=== PATIENT | male | born 1935 | race Caucasian/White ===

== ENCOUNTER 2019-07-01 07:04 | Emergency (ER) | payer MEDICARE | END 2019-07-01 07:43 | disposition short-term general hospital (02) | LOC: ED 07:04 ==

== ENCOUNTER 2021-11-03 17:11 | Emergency (ER) | payer MEDICARE ==
--- NOTE | 2021-11-03 17:59 | ERPHSYRPT ---
- History of Present Illness Time Seen by Provider: 11/03/21 17:51 Historian: patient Exam Limitations: no limitations Patient Subjective Stated Complaint: The patient states that this morning he felt like his existing inguinal hernia has been getting bigger, like a tearing sensation. The patient states that he had a hard time "getting the hernia to go back in"..the patient has a referral with Sonny Casey on November 12. Triage Nursing Assessment: The patient is alert and oriented, is able to ambulate. The patient is in obvious discomfort, rating pain at 7/10. The patient describes the pain as sharp, tearing and burning. The patient has a buldge by her left groin area that is golfball size. 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 He presents with a complaint of left inguinal pain he has had an inguinal hernia which developed at the beginning of October 2021 has been constantly getting worse he has had increasing difficulty today getting it to reduce itself spontaneously. He has had no nausea or vomiting. He is Dr. Champion's patient he has an appointment to see Dr. Sonny Casey 12 November but wishes to try to expedite that visit and subsequent surgery. Timing/Duration: week(s) (6 to 8 weeks) Activities at Onset: none Quality: throbbing Abdominal Pain Onset Location: LLQ Pain Radiation: groin Severity of Pain-Max: severe Severity of Pain-Current: moderate Modifying Factors: Improves With: coughing, lying down, movement Associated Symptoms: denies symptoms Allergies/Adverse Reactions: No Known Drug Allergies Allergy (Verified 11/03/21 17:41) Home Medications: Omeprazole 20 MG [Prilosec 20 mg] 20 mg PO DAILY 10/15/16 [History] Benazepril HCl 20 mg PO DAILY 11/03/21 [History] Diltiazem HCl [Cardizem Cd] 120 mg PO DAILY 11/03/21 [History] Rivaroxaban 10 mg Tablet [Xarelto 10 mg Tablet] 20 mg PO DAILY 11/03/21 [History] Hx Tetanus, Diphtheria Vaccination/Date Given: Yes Hx Influenza Vaccination/Date Given: No Hx Pneumococcal Vaccination/Date Given: No Immunizations Up to Date: Yes Travel Risk - International Travel Have you traveled outside of the country in past 3 weeks: No - Coronavirus Screening Are you exhibiting any of the following symptoms?: No Close contact with a COVID-19 positive Pt in past 14-21 Days: No - Vaccine Status Have you recieved a Covid-19 vaccination: No - Review of Systems Constitutional: No Fever, No Chills Eyes: No Symptoms Ears, Nose, & Throat: No Symptoms Respiratory: No Cough, No Dyspnea Cardiac: No Chest Pain, No Edema, No Syncope Abdominal/Gastrointestinal: No Abdominal Pain, No Nausea, No Vomiting, No Diarrhea Genitourinary Symptoms: No Dysuria Musculoskeletal: No Back Pain, No Neck Pain Skin: No Rash Neurological: No Dizziness, No Focal Weakness, No Sensory Changes Psychological: No Symptoms Endocrine: No Symptoms All Other Systems: Reviewed and Negative - Past Medical History Pertinent Past Medical History: Yes Neurological History: Peripheral Neuropathy Cardiac History: Arrhythmia, Hypertension Respiratory History: Other Endocrine Medical History: No Pertinent History Musculoskeletal History: Osteoarthritis GI Medical History: Hernia, Ulcer Psycho-Social History: No Pertinent History Other Medical History: A-fib, some symptoms of COPD but never diagnosed. - Past Surgical History Past Surgical History: Yes Neuro Surgical History: No Pertinent History Cardiac: Cardiac Catheterization Respiratory: No Pertinent History Gastrointestinal: Hernia Repair, Other Musculoskeletal: Orthopedic Surgery Other Surgical History: 35% OF STOMACH REMOVED, ULCERS, SOTERO SHOULDERS (sotero rotator cuff surgery) - Social History Smoking Status: Never smoker Exposure to second hand smoke: No Drug Use: none Patient Lives Alone: No - Nursing Vital Signs Nursing Vital Signs: Initial Vital Signs Temperature 97.4 F 11/03/21 17:23 Pulse Rate 70 11/03/21 17:23 Respiratory Rate 22 11/03/21 17:23 Blood Pressure 173/93 11/03/21 17:23 O2 Sat by Pulse Oximetry 99 11/03/21 17:23 Pain Scale Pain Intensity 7 - Physical Exam General Appearance: mild distress, alert Eye Exam: PERRL/EOMI, eyes nml inspection Ears, Nose, Throat Exam: normal ENT inspection, pharynx normal, moist mucous membranes Neck Exam: normal inspection, non-tender, supple, full range of motion Respiratory Exam: normal breath sounds, lungs clear, No respiratory distress Cardiovascular Exam: regular rate/rhythm, normal heart sounds Gastrointestinal/Abdomen Exam: soft, hernia (Hernia slides quite easily in and out seems to be somewhat tender), No tenderness, No mass Male Genitalia Exam: hernia Back Exam: normal inspection, normal range of motion, No CVA tenderness, No vertebral tenderness Extremity Exam: normal inspection, normal range of motion, pelvis stable Neurologic Exam: alert, oriented x 3, cooperative, normal mood/affect, nml cerebellar function, sensation nml, No motor deficits Skin Exam: normal color, warm, dry SpO2 Interpretation: normal SpO2: 99 O2 Delivery: Room Air - Course Nursing assessment & vital signs reviewed: Yes - Progress Progress: unchanged Progress Note: 11/03/21 18:[address] Mckinnon is on-call for call for the [facility]. He said that since it was reducible and no vomiting and no signs of strangulation that Dr. Jimenez would be any office tomorrow morning and the doctor pushed himself a bit in the office on and that he could be seen. - Departure Departure Disposition: Home Clinical Impression: Left inguinal hernia Condition: Stable Critical Care Time: No Referrals: ETHAN CHAMPION [Primary Care Provider] - Follow up/PCP as directed Instructions: Hernia Repair (DC), Groin Hernia (DC)
[2021-11-03 18:26] VITALS: BP 143/82; PULSE 72; O2SAT 97
== END 2021-11-03 18:26 | disposition home or self-care (01) ==
LOC: ED 17:11
DX: K40.90 Unilateral inguinal hernia, without obstruction or gangrene, not specified as recurrent (principal); I10 Essential (primary) hypertension; I48.91 Unspecified atrial fibrillation; Z79.01 Long term (current) use of anticoagulants; Z79.899 Other long term (current) drug therapy
CPT/HCPCS: 99283

== ENCOUNTER 2022-02-12 16:02 | Emergency (ER) | payer MEDICARE ==
[2022-02-12] MEDS ORDERED: Adacel Vial IM ONE ×2 (16:20→16:23)
[2022-02-12] MEDS ORDERED: XYLOCAINE 1% HCL 20 ML MDV ONE (16:21)
[2022-02-12] MEDS ORDERED: XYLOCAINE 1% HCL 20 ML MDV IJ ONE (16:22)
[2022-02-12] MEDS ORDERED: BACIGUENT PACKET TP ONE (17:01)
[2022-02-12] MEDS ORDERED: BACIGUENT PACKET ONE (17:02)
[2022-02-12 17:20] VITALS: BP 130/78; PULSE 64
[2022-02-12 17:21] VITALS: O2SAT 97
--- NOTE | 2022-02-12 17:22 | ERPHSYRPT ---
- History of Present Illness Source: patient Exam Limitations: no limitations Patient Subjective Stated Complaint: pt here for laceration to right middle finger he states he was carrying in wood and got finger smashed between two logs Triage Nursing Assessment: pt alert, resp easy, skin w/d/p. has laceration to right index finger, has small amt of bleeding, Physician History: Crush injury R 3rd distal tip when wood fell on it at home. Pt is R handed and denies other/previous injuries. Tdap given in ER. Occurred: just prior to arrival Method of Injury: other (Crush injury) Quality: constant Severity of Pain-Max: mild Severity of Pain-Current: mild Extremities Pain Location: 3rd finger: right (Distal tip avulsion) Modifying Factors: Improves With: movement Associated Symptoms: none Allergies/Adverse Reactions: No Known Drug Allergies Allergy (Verified 02/12/22 16:13) Home Medications: Omeprazole 20 MG [Prilosec 20 mg] 20 mg PO DAILY 10/15/16 [History] Benazepril HCl 20 mg PO DAILY 11/03/21 [History] Diltiazem HCl [Cardizem Cd] 120 mg PO DAILY 11/03/21 [History] Rivaroxaban 10 mg Tablet [Xarelto 10 mg Tablet] 20 mg PO DAILY 11/03/21 [History] Hx Tetanus, Diphtheria Vaccination/Date Given: No (8 years ago) Hx Influenza Vaccination/Date Given: No Hx Pneumococcal Vaccination/Date Given: No Immunizations Up to Date: Yes Travel Risk - International Travel Have you traveled outside of the country in past 3 weeks: No - Coronavirus Screening Are you exhibiting any of the following symptoms?: No Close contact with a COVID-19 positive Pt in past 14-21 Days: No - Vaccine Status Have you recieved a Covid-19 vaccination: No - Review of Systems Constitutional: No Symptoms Eyes: No Symptoms Ears, Nose, & Throat: No Symptoms Respiratory: No Symptoms Cardiac: No Symptoms Abdominal/Gastrointestinal: No Symptoms Genitourinary Symptoms: No Symptoms Skin: No Symptoms Neurological: No Symptoms Psychological: No Symptoms Endocrine: No Symptoms Hematologic/Lymphatic: No Symptoms Immunological/Allergic: No Symptoms - Past Medical History Pertinent Past Medical History: Yes Neurological History: Peripheral Neuropathy Cardiac History: Arrhythmia, Hypertension Respiratory History: Other Endocrine Medical History: No Pertinent History Musculoskeletal History: Osteoarthritis GI Medical History: Hernia, Ulcer Psycho-Social History: No Pertinent History Other Medical History: A-fib, some symptoms of COPD but never diagnosed. - Past Surgical History Past Surgical History: Yes Neuro Surgical History: No Pertinent History Cardiac: Cardiac Catheterization Respiratory: No Pertinent History Gastrointestinal: Hernia Repair, Other Musculoskeletal: Orthopedic Surgery Other Surgical History: 35% OF STOMACH REMOVED, ULCERS, SOTERO SHOULDERS (sotero rotator cuff surgery) - Social History Smoking Status: Never smoker Exposure to second hand smoke: No Drug Use: none Patient Lives Alone: No Significant Family History: no pertinent family hx - Nursing Vital Signs Nursing Vital Signs: Initial Vital Signs Temperature 97.2 F 02/12/22 16:06 Pulse Rate 65 02/12/22 16:06 Respiratory Rate 18 02/12/22 16:06 Blood Pressure 172/87 02/12/22 16:06 O2 Sat by Pulse Oximetry 97 02/12/22 16:06 Pain Scale Pain Intensity 0 Hypertensive - Physical Exam General Appearance: no apparent distress Eyes, Ears, Nose, Throat Exam: normal ENT inspection, TMs normal, pharynx normal, moist mucous membranes Neck Exam: normal inspection (C-spine NTTP), non-tender, supple, full range of motion Cardiovascular/Respiratory Exam: chest non-tender, normal breath sounds, regular rate/rhythm, heart sounds normal Abdominal Exam: non-tender, soft Back Exam: normal inspection, normal range of motion, No vertebral tenderness Shoulder Exam: normal inspection Elbow/Forearm Exam: normal inspection Wrist Exam: normal inspection Hand Exam: laceration (R distal 3rd digit tip avulsion/Good distal capillary return and sensation) Neuro/Tendon Exam: normal sensation, normal motor functions, normal tendon functions, responds to pain Mental Status Exam: alert, oriented x 3 Skin Exam: normal color, warm, dry SpO2 Interpretation: normal SpO2: 97 O2 Delivery: Room Air Procedures - Laceration/Wound Repair Right Distal Finger Wound Location: Right (R distal 3rd digit tip avulsion) Wound Length (cm): 2 Wound Explored: clean Hibiclens Prep: Yes Anesthesia: digital block, 1% Lidocaine Wound Repaired With: sutures Suture Size/Type: 4-0 (4.0 Ethilon x9) Number of Sutures: 9 Sterile Dressing Applied?: Yes - Course Nursing assessment & vital signs reviewed: Yes - Radiology Exams Hand X-ray Interpretation: Interpreted by me (R 3rd digit neg per ER read) Ordered Tests: Active Orders 24 hr Category Date Time Status Wound Care STAT Care 02/12/22 17:01 Completed FINGER(S) Stat Exams 02/12/22 16:46 Completed Medication Summary Discontinued Medications Generic Name Dose Route Start Last Admin Trade Name Macho PRN Reason Stop Dose Admin Bacitracin Zinc 0.9 gm 02/12/22 17:01 02/12/22 17:02 Bacitracin Packet 0.9 Gm Pckt TP 02/12/22 17:02 0.9 gm STAT ONE Administration Bacitracin Zinc Confirm 02/12/22 17:02 Bacitracin Packet 0.9 Gm Pckt Administered 02/12/22 17:03 Dose 1 gm .ROUTE .STK-MED ONE Diphtheria/Tetanus/Acell Pertussis 0.5 ml 02/12/22 16:20 02/12/22 16:24 Tdap --Diph,Pertuss(Acell),Tet Vac/Pf 0.5 Ml Vial IM 02/12/22 16:21 0.5 ml .ONCE ONE Administration Diphtheria/Tetanus/Acell Pertussis Confirm 02/12/22 16:23 Tdap --Diph,Pertuss(Acell),Tet Vac/Pf 0.5 Ml Vial Administered 02/12/22 16:24 Dose 0.5 ml IM .STK-MED ONE Lidocaine HCl 5 ml 02/12/22 16:22 02/12/22 16:23 Lidocaine Hcl 1% 20 Ml Mdv 20 Ml Ml IJ 02/12/22 16:23 5 ml STAT ONE Administration Lidocaine HCl Confirm 02/12/22 16:21 Lidocaine Hcl 1% 20 Ml Mdv 20 Ml Ml Administered 02/12/22 16:22 Dose 5 ml .ROUTE .STK-MED ONE - Progress Progress: improved Progress Note: 02/12/22 17:22 Tdap Pt advised before repair that 50% probability of losing flap Counseled pt/family regarding: diagnosis, need for follow-up, rad results - Departure Departure Disposition: Home Clinical Impression: Avulsion of finger tip Condition: Stable Critical Care Time: No Referrals: ETHAN CHAMPION [Primary Care Provider] - Follow up/PCP as directed Instructions: Common Finger Injuries (DC) Additional Instructions: Keep laceration dry for 3 days, then wash 1-2 times a day gently with soap/water Sutures out in 10 days Watch for signs of infection-redness/increasing pain/pus/temperature greater than 100.5 Start Keflex three times a day Prescriptions: Cephalexin Mh 500 mg [Keflex 500 mg] 500 mg PO TID #30 cap
--- NOTE | 2022-02-12 18:15 | XRAY ---
Indication: Crush injury. Comparison: None 3 view right third finger demonstrates osteopenia and minimal/mild degenerative changes of visualized IP joints. No other bony, articular, or soft tissue abnormalities.
== END 2022-02-12 17:31 | disposition home or self-care (01) ==
LOC: ED 16:02
DX: S61.212A Laceration without foreign body of right middle finger without damage to nail, initial encounter (principal); W23.0XXA Caught, crushed, jammed, or pinched between moving objects, initial encounter; Z79.01 Long term (current) use of anticoagulants; Z79.899 Other long term (current) drug therapy
CPT/HCPCS: 12001; 73140; 90471; 90715; 96372; 99284; A9270-GY

== ENCOUNTER 2023-02-11 14:33 | Emergency (ER) | payer MEDICARE ==
[2023-02-11 14:49] VITALS: O2SAT 97
--- NOTE | 2023-02-11 15:16 | XRAY ---
Indication: Head injury. Multiple contiguous axial images obtained through the head without contrast. Comparison: None Age-appropriate global atrophy. No acute intracranial hemorrhage, abnormal extra-axial fluid collection, or mass effect. Fourth ventricle is midline without hydrocephalus. Mendoza-white matter differentiation preserved. Small right vertex scalp hematoma/laceration. Bony calvarium intact. Visualized paranasal sinuses and mastoid air cells are clear. Impression: Right vertex scalp hematoma/laceration. Negative CT head without contrast exam.
--- NOTE | 2023-02-11 15:20 | XRAY ---
Indication: Head injury. Multiple contiguous axial images obtained through the cervical spine. Sagittal and coronal reformatted images obtained. Comparison: None Age-related osteopenia. Axial images negative for acute fracture, suspicious bony lesions, or spinal canal stenosis. Minimal/mild C3-C7 degenerative endplate spurring and mild/moderate multilevel bilateral degenerative facet hypertrophy. Sagittal and coronal reformatted images demonstrate normal alignment with C4-C6 disc space narrowing. No acute compression fracture, subluxation, or jumped facet. Normal appearing craniocervical junction. Visualized noncontrasted soft tissues including lung apices are unremarkable. Impression: 1. Negative for acute fracture/luxation. 2. Osteopenia and multilevel degenerative changes.
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
[2023-02-11 16:40] VITALS: BP 160/85; PULSE 57
[2023-02-11] MEDS ORDERED: PIPERACILLIN/TAZOBACTAM 4.5 GM in Sodium Chloride 100ML MINI-BAG PLUS 100 ML IV ONE (16:42)
== END 2023-02-11 17:58 | disposition home or self-care (01) ==
LOC: ED 14:33
DX: S01.01XA Laceration without foreign body of scalp, initial encounter (principal); W20.8XXA Other cause of strike by thrown, projected or falling object, initial encounter; M54.2 Cervicalgia; I10 Essential (primary) hypertension; Z79.01 Long term (current) use of anticoagulants; Z79.899 Other long term (current) drug therapy; Z28.310 Unvaccinated for COVID-19
CPT/HCPCS: 12002; 70450; 72125; 99283

== ENCOUNTER 2023-04-23 21:19 | Emergency (ER) | payer MEDICARE | END 2023-04-23 21:25 | disposition left against medical advice (07) | LOC: ED 21:19 | DX: Z53.21 Procedure and treatment not carried out due to patient leaving prior to being seen by health care provider (principal) ==

== ENCOUNTER 2025-01-03 10:26 | Day surgery (SDC) | payer MEDICARE ==
[2025-01-03] MEDS ORDERED: Lactated Ringers 1,000 ML IV ONE (10:39)
[2025-01-03] MEDS: Lactated Ringers 1,000 ML IV SCH (10:59)
[2025-01-03 11:26] LABS: ANION GAP 11.5 MEQ/L (5-15); Calcium 9.3 mg/dL (8.4-10.2); EST GLOMERULAR FILTRATION RATE 72.8 ML/MIN; Potassium 3.9 mmol/L (3.5-5.1)
[2025-01-03] MEDS ORDERED: propofoL IV ONE (11:53)
[2025-01-03 12:42] VITALS: RESP 16
[2025-01-03 12:49] VITALS: BP 128/77; PULSE 69; O2SAT 96
[2025-01-03 12:58] VITALS: TEMP 97.6
--- NOTE | 2025-01-04 09:56 | OP ---
SURGERY DATE/TIME: 01/03/2025 [id number] PREOPERATIVE DIAGNOSES: 1) Abdominal pain. 2) History of gastric ulcer. 3) Change in bowel habits. POSTOPERATIVE DIAGNOSES: 1) Mild to moderate gastritis. 2) Poor preparation in the colon. 3) Mild diverticulosis. PROCEDURES: 1) Esophagogastroduodenoscopy with biopsy. 2) Colonoscopy. SURGEON: Fermin Casey MD ANESTHESIA: IV anesthesia. CONDITION: Stable. COMPLICATIONS: None. SPECIMEN: Gastric biopsy. INDICATION: The patient is an 89-year-old male that reports previous gastric ulcer with surgery and maybe revision. He is having some mild abdominal pain but is also having change in bowel habits with constipation, infrequent bowels. Discussion with patient, he does want to proceed with EGD and colonoscopy. FINDINGS: Stomach with mild to moderate gastritis with erythema. Probably a B1 reconstruction. Colonoscopy with poor preparation but no obvious lesions or explanation for his symptoms. DESCRIPTION OF PROCEDURE AND FINDINGS: Patient was brought to the endoscopy suite. Routinely positioned. IV anesthesia induced by anesthesia. Time-out performed. The gastroscope was inserted through the mouth, advanced to the duodenum. The duodenum was normal in appearance. It is probably a B1 reconstruction. I cannot really see the anastomosis but there is no obvious pylorus and the stomach does have just mild to moderate erythema, friability that a biopsy of the stomach is taken with a forceps to rule out H pylori. Retroflexion is normal. GE junction normal. Stomach is suctioned out, scope was withdrawn. Esophagus is normal. The external examination was normal. Digital rectal exam normal. Colonoscope was inserted and advanced to the cecum, though it is a poor preparation and there is some liquid stool there in the cecum. Withdrawal is performed. On withdrawal, there are no obvious lesions in the colon. Small lesions or larger flat lesions could be missed but there is certainly no obstruction or stricture, just mild diverticulosis in the sigmoid colon. Retroflexion normal. The scope was withdrawn. Patient tolerated the procedure. He was taken to recovery in stable condition. RECOMMENDATIONS: Daily PPI. Patient family states he is on omeprazole. Follow up in office for pathology results.
== END 2025-01-03 12:58 | disposition home or self-care (01) ==
LOC: SDC 10:26
PROVIDERS: ATTEND Surgery
DX: K29.70 Gastritis, unspecified, without bleeding (principal); R10.9 Unspecified abdominal pain; Z87.19 Personal history of other diseases of the digestive system; R19.4 Change in bowel habit; K57.30 Diverticulosis of large intestine without perforation or abscess without bleeding
CPT/HCPCS: 36415; 80048; 93005; 99100; J2704

== ENCOUNTER 2025-02-25 17:42 | Emergency (ER) | payer MEDICARE ==
--- NOTE | 2025-02-25 17:46 | ERPHSYRPT ---
- History of Present Illness Time Seen by Provider: 02/25/25 17:46 Historian: patient, family Exam Limitations: no limitations Physician History: This is an 89-year-old white male patient that arrives by private vehicle and is a patient of Dr. Lopez with the complaint of epigastric and midsternal chest pain that radiates straight through to his back. The patient states that he is also having sharp radiating pain to his right jaw. Patient states that his pacemaker company that monitors his pacemaker called him on Tuesday prior to this evaluation telling him that his atrial fibrillation has a rapid response with heart rate in the 150s. He was told to call an ambulance to be taken into the emergency department for evaluation. He states he did not do that because "I am stubborn and did not want to come in". Patient does see cardiologists and Dr. Andrade. Patient has a history of atrial fibrillation and is on Xarelto. He also has a history of hypertension, coronary disease, hypothyroidism, osteoarthritis and peripheral neuropathy. Timing/Duration: worse (Right jaw pain came on about an hour prior to arrival.) Quality: aching (Right jaw pain), sharpness (Central chest into his back) Location: substernal, central Chest Pain Radiation: jaw, back Severity of Pain-Max: moderate Severity of Pain-Current: moderate Modifying Factors: Improves With: nothing Associated Symptoms: abdominal pain (Pain in the epigastrium that radiates straight through to his back) Prior Chest Pain/Cardiac Workup: cardiac cath, heart attack Nitro Today/Relief: no nitro taken today Aspirin Treatment Today: 81 mg x 4, provided by ED Allergies/Adverse Reactions: No Known Drug Allergies Allergy (Verified 12/10/24 11:48) Home Medications: Benazepril HCl 20 mg PO DAILY 11/03/21 [History] Rivaroxaban 10 mg Tablet [Xarelto 10 mg Tablet] 20 mg PO DAILY 11/03/21 [History] dilTIAZem HCL [Cardizem Cd] 240 mg PO DAILY 11/03/21 [History] Hx Tetanus, Diphtheria Vaccination/Date Given: Yes Hx Influenza Vaccination/Date Given: Yes Hx Pneumococcal Vaccination/Date Given: Yes Travel Risk - International Travel Have you traveled outside of the country in past 3 weeks: No - Emerging Infectious Disease Are you exhibiting symptoms associated with any current EIDs: No - Review of Systems Constitutional: No Symptoms Eyes: No Symptoms Ears, Nose, & Throat: No Symptoms Respiratory: No Symptoms Cardiac: Chest Pain Abdominal/Gastrointestinal: No Symptoms Genitourinary Symptoms: No Symptoms Musculoskeletal: No Symptoms Skin: No Symptoms Neurological: No Symptoms Psychological: No Symptoms Endocrine: No Symptoms Hematologic/Lymphatic: No Symptoms Immunological/Allergic: No Symptoms All Other Systems: Reviewed and Negative - Past Medical History Pertinent Past Medical History: Yes Neurological History: Peripheral Neuropathy ENT History: No Pertinent History Cardiac History: Arrhythmia, Hypertension, Myocardial Infarction ([place]) Respiratory History: Sleep Apnea, Other Endocrine Medical History: Hypothyroidism Musculoskeletal History: Osteoarthritis GI Medical History: Hernia, Ulcer History: No Pertinent History Psycho-Social History: No Pertinent History Male Reproductive Disorders: No Pertinent History Other Medical History: A-fib, some symptoms of COPD but never diagnosed. - Past Surgical History Past Surgical History: Yes Neuro Surgical History: No Pertinent History Cardiac: Cardiac Catheterization, Pacemaker Respiratory: No Pertinent History Gastrointestinal: Hernia Repair, Other Musculoskeletal: Orthopedic Surgery Other Surgical History: 35% OF STOMACH REMOVED, ULCERS, SOTERO SHOULDERS (sotero rotator cuff surgery) Significant Family History: no pertinent family hx - Social History Smoking Status: Never smoker - Nursing Vital Signs Nursing Vital Signs: Initial Vital Signs Temperature 97.3 F 02/25/25 17:44 Pulse Rate 99 H 02/25/25 17:44 Respiratory Rate 22 02/25/25 17:44 Blood Pressure 168/97 02/25/25 17:44 O2 Sat by Pulse Oximetry 95 02/25/25 17:44 Pain Scale Pain Intensity 5 - Physical Exam General Appearance: no apparent distress, alert, anxiety Eye Exam: PERRL/EOMI, eyes nml inspection Ears, Nose, Throat Exam: normal ENT inspection, moist mucous membranes Neck Exam: normal inspection, non-tender, supple, full range of motion Respiratory Exam: normal breath sounds, chest tenderness, lungs clear, airway intact, No respiratory distress Cardiovascular Exam: regular rate/rhythm, normal heart sounds, normal peripheral pulses Gastrointestinal/Abdomen Exam: soft, normal bowel sounds, tenderness (Tenderness in the epigastrium that radiates straight through to his back), guarding, No rebound Rectal Exam: not done Back Exam: normal inspection, normal range of motion, No CVA tenderness, No vertebral tenderness Extremity Exam: normal inspection, normal range of motion, pelvis stable Neurologic Exam: alert, oriented x 3, cooperative, memory care director II-XII nml as tested, nml cerebellar function, nml station & gait, sensation nml Skin Exam: normal color, warm, dry Lymphatic Exam: No adenopathy SpO2 Interpretation: normal O2 Delivery: Room Air - Course Nursing assessment & vital signs reviewed: Yes EKG Interpreted by Me: RATE (98), A-fib, Left [place] Deviation, Other (The computer reads on supraventricular bigeminy. I do not appreciate an acute infarction. QTc is 466. I compared this EKG to 1 performed on 01/03/2025.) Ordered Tests: Active Orders 24 hr Category Date Time Status EKG-ER Only STAT Care 02/25/25 17:51 Active IV Insertion STAT Care 02/25/25 17:51 Active Pulse Oximetry (ED) STAT Care 02/25/25 17:55 Active ABDOMEN AND PELVIS W CONTRAST [CT] Stat Exams 02/25/25 17:52 Taken CHEST WITH CONTRAST [CT] Stat Exams 02/25/25 17:52 Taken CBC W DIFF Stat Lab 02/25/25 17:50 Completed CMP Stat Lab 02/25/25 17:50 Completed MAG [MAGNESIUM] Stat Lab 02/25/25 17:50 Completed TROPONIN Q4H Lab 02/25/25 17:50 Completed TROPONIN Q4H Lab 02/25/25 20:40 Received TROPONIN Q4H Lab 02/26/25 02:00 Ordered TSH [TSH, 3RD Generation] Stat Lab 02/25/25 17:50 Completed Medication Summary Generic Name Dose Route Start Last Admin Trade Name Freq PRN Reason Stop Dose Admin Sodium Chloride 500 mls @ 50 mls/hr 02/25/25 19:30 02/25/25 19:43 Sodium Chloride 0.9% 500 Ml IV 03/27/25 19:29 50 mls/hr .Q10H SEBASTIÁN Administration Discontinued Medications Generic Name Dose Route Start Last Admin Trade Name Freq PRN Reason Stop Dose Admin Aspirin 324 mg 02/25/25 17:55 02/25/25 18:03 Aspirin 81 Mg Tab.Chew PO 02/25/25 17:56 324 mg STAT ONE Administration Aspirin Confirm 02/25/25 17:57 Aspirin 81 Mg Tab.Chew Administered 02/25/25 17:58 Dose 324 mg .ROUTE .STK-MED ONE Morphine Sulfate 2 mg 02/25/25 17:55 02/25/25 18:03 Morphine Sulfate 2 Mg/Ml Inj IV 02/25/25 17:56 2 mg STAT ONE Administration Morphine Sulfate Confirm 02/25/25 17:57 Morphine Sulfate 2 Mg/Ml Inj Administered 02/25/25 17:58 Dose 2 mg .ROUTE .STK-MED ONE Morphine Sulfate 2 mg 02/25/25 19:20 02/25/25 19:42 Morphine Sulfate 2 Mg/Ml Inj IV 02/25/25 19:21 2 mg STAT ONE Administration Morphine Sulfate Confirm 02/25/25 19:41 Morphine Sulfate 2 Mg/Ml Inj Administered 02/25/25 19:42 Dose 2 mg .ROUTE .STK-MED ONE Ondansetron HCl 4 mg 02/25/25 17:55 02/25/25 18:03 Ondansetron Hcl 4 Mg/2 Ml Vial IV 02/25/25 17:56 4 mg STAT ONE Administration Ondansetron HCl Confirm 02/25/25 17:57 Ondansetron Hcl 4 Mg/2 Ml Vial Administered 02/25/25 17:58 Dose 4 mg .ROUTE .STK-MED ONE Lab/Rad Data: Laboratory Result Diagrams 02/25/25 17:50 02/25/25 17:50 Laboratory Results 02/25/25 02/25/25 02/25/25 Range/Units 17:50 17:50 17:50 WBC (4.23-9.07) x10^3/uL RBC (4.63-6.08) x10^6/uL Hgb (13.7-17.5) g/dL Hct (40.1-51.0) % MCV (79.0-92.2) fL MCH (25.7-32.2) pg MCHC (32.3-36.5) g/dL RDW (11.6-14.4) % Plt Count (163-337) x10^3/uL MPV (9.4-12.4) fL Gran % (34.0-67.9) % Immature Gran % (Auto) (0.001-0.429) % Nucleat RBC Rel Count (0.00-0.2) % Eos # (Auto) (0.04-0.54) x10^3/uL Immature Gran # (Auto) (0.001-0.031) x10^3u/L Absolute Lymphs (auto) (1.32-3.57) x10^3/uL Absolute Monos (auto) (0.30-0.82) x10^3/uL Absolute Nucleated RBC (0.00-0.012) x10^3u/L Lymphocytes % (21.8-53.1) % Monocytes % (5.3-12.2) % Eosinophils % (0.8-7.0) % Basophils % (0.2-1.2) % Absolute Granulocytes (1.78-5.38) x10^3/uL Basophils # (0.01-0.08) x10^3/uL Sodium (135-145) mmol/L Potassium (3.5-5.1) mmol/L Chloride (98-107) mmol/L Carbon Dioxide (22-30) mmol/L Anion Gap (5-15) MEQ/L BUN (9-20) mg/dL Creatinine (0.66-1.25) mg/dL Estimated GFR ML/MIN Glucose (74-106) mg/dL Calcium (8.4-10.2) mg/dL Magnesium (1.6-2.3) mg/dL Total Bilirubin (0.2-1.3) mg/dL AST (17-59) U/L ALT (0-50) U/L Alkaline Phosphatase (38-126) U/L Troponin I < 0.012 (0.000-0.033) ng/mL Serum Total Protein (6.3-8.2) g/dL Albumin (3.5-5.0) g/dL Free T4 1.41 (0.78-2.19) ng/dL TSH 3rd Generation 3.259 (0.470-4.680) mIU/L 02/25/25 02/25/25 Range/Units 17:50 17:50 WBC 9.1 H (4.23-9.07) x10^3/uL RBC 4.89 (4.63-6.08) x10^6/uL Hgb 14.1 (13.7-17.5) g/dL Hct 42.9 (40.1-51.0) % MCV 87.7 (79.0-92.2) fL MCH 28.8 (25.7-32.2) pg MCHC 32.9 (32.3-36.5) g/dL RDW 13.8 (11.6-14.4) % Plt Count 227 (163-337) x10^3/uL MPV 9.8 (9.4-12.4) fL Gran % 67.4 (34.0-67.9) % Immature Gran % (Auto) 0.4 (0.001-0.429) % Nucleat RBC Rel Count 0.0 (0.00-0.2) % Eos # (Auto) 0.10 (0.04-0.54) x10^3/uL Immature Gran # (Auto) 0.04 H (0.001-0.031) x10^3u/L Absolute Lymphs (auto) 1.82 (1.32-3.57) x10^3/uL Absolute Monos (auto) 0.93 H (0.30-0.82) x10^3/uL Absolute Nucleated RBC 0.00 (0.00-0.012) x10^3u/L Lymphocytes % 19.9 L (21.8-53.1) % Monocytes % 10.2 (5.3-12.2) % Eosinophils % 1.1 (0.8-7.0) % Basophils % 1.0 (0.2-1.2) % Absolute Granulocytes 6.16 H (1.78-5.38) x10^3/uL Basophils # 0.09 H (0.01-0.08) x10^3/uL Sodium 141 (135-145) mmol/L Potassium 3.9 (3.5-5.1) mmol/L Chloride 106 (98-107) mmol/L Carbon Dioxide 18 L (22-30) mmol/L Anion Gap 20.2 H (5-15) MEQ/L BUN 20 (9-20) mg/dL Creatinine 1.04 (0.66-1.25) mg/dL Estimated GFR 69.5 ML/MIN Glucose 128 H (74-106) mg/dL Calcium 9.0 (8.4-10.2) mg/dL Magnesium 2.2 (1.6-2.3) mg/dL Total Bilirubin 0.70 (0.2-1.3) mg/dL AST 78 H (17-59) U/L ALT 34 (0-50) U/L Alkaline Phosphatase 110 (38-126) U/L Troponin I (0.000-0.033) ng/mL Serum Total Protein 7.4 (6.3-8.2) g/dL Albumin 4.7 (3.5-5.0) g/dL Free T4 (0.78-2.19) ng/dL TSH 3rd Generation (0.470-4.680) mIU/L - Progress Progress: improved, re-examined Air Movement: good Progress Note: 02/25/25 18:40 My medical decision making and the assignment of at least moderate complexity to this patient's medical issue today is based on review of the patient's past medical history, review the patient's medication list, reviewed patient drug allergy list, history present illness and physical findings on examination. The workup on this patient includes placement of intravenous line, CBC, CMP, magnesium level, troponin level, twelve-lead EKG, CT of the chest abdomen pelvis all with contrast. Differential diagnosis includes but is not limited to arrhythmia, myocardial infarction, pulmonary embolism, aortic dissection 02/25/25 19:33 I interpreted the patient's laboratory data results. Based on the laboratory data results, there are no acute, emergent medical issues. 02/25/25 20:[address] scans with contrast were interpreted by the radiologist and I reviewed the impressions. The impression state: CT scan of the chest with contrast shows a normal aorta. There is stable, borderline cardiomegaly. There is bibasilar atelectasis/scarring. There are no new/acute findings. CT scan of the abdomen pelvis with contrast shows minimal arteriosclerotic aorta without abdominal aortic aneurysm or dissection. There is bilateral renal cysts. There is cholecystectomy with prominent biliary tree. 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 02/25/25 20:44 I interpreted the patient's repeat twelve-lead EKG that was performed 02/25/2025 at 2039. The heart rate is 82 bpm. The patient's twelve-lead EKG appears to be rate controlled atrial fibrillation. There are a few PVCs present. There is borderline prolonged QT interval. The QTc is 490. There is no evidence of acute ischemic changes. 02/25/25 21:08 I spoke at length with this patient and reviewed the radiographic study results and the results of the EKG and lab results. Patient is not wanting to stay to be evaluated or observed in the hospital setting. He states he feels much better at this time. He has no chest pain and no jaw pain. He is not short of breath. We will have him sign out AGAINST MEDICAL ADVICE. He is aware that although the workup thus far is negative, he does have significant cardiac disease and his level of acute pain was significant upon entrance into the emergency department. He understands that by going home his condition may suddenly worsen again which may lead to myocardial infarction or possibly even . He wishes to leave AGAINST MEDICAL ADVICE. He has to be at a hospital for testing tomorrow morning Blood Culture(s) Obtained: No Antibiotics given: No Counseled pt/family regarding: lab results, diagnosis, rad results Medical Desision Making - Diagnostic Testing Diagnostic test were ordered, analyzed, and reviewed by me: Yes Radiological Interpretation: Reviewed by me, Teleradiologist Report - Risk of complications Low Risk: Low risk of morbidity from additional dx testing or treatment - Departure Departure Disposition: AMA Clinical Impression: Chest pain, Back pain, Jaw pain Condition: Stable Critical Care Time: No Referrals: ETHAN LOPEZ [Primary Care Provider, [facility]] - Follow up/PCP as directed Additional Instructions: Take all your medications as prescribed. Call your primary care provider and your victims advocate clerk/specialist tomorrow morning, 02/26/2025, to make arrangement for follow-up appointment to be seen in the next 2 to 3 days. Return to the emergency department if you change your mind regarding being placed in observation or if your symptoms recur.
[2025-02-25 17:51] VITALS: TEMP 97.3
[2025-02-25] MEDS ORDERED: MORPHINE SULFATE 2 MG INJ ONE ×2 (17:57→19:41)
[2025-02-25] MEDS ORDERED: BABY ASPIRIN 81 MG CHEW ONE (17:57)
[2025-02-25] MEDS ORDERED: Zofran 4 MG/2 ML VIAL ONE (17:57)
[2025-02-25 17:59] LABS: Absolute Neutrophil Ct (ANC) 6.16 x10^3/uL (1.78-5.38); Basophil (Absolute #) 0.09 x10^3/uL (0.01-0.08); Eosinophil % 1.1 % (0.8-7.0); Hematocrit 42.9 % (40.1-51.0); Hemoglobin 14.1 g/dL (13.7-17.5); IMMATURE GRAN # 0.04 x10^3u/L (0.001-0.031); IMMATURE GRAN % 0.4 % (0.001-0.429); Lymphocyte (Absolute #) 1.82 x10^3/uL (1.32-3.57); Lymphocytes % 19.9 % (21.8-53.1); Mean Cell Volume 87.7 fL (79.0-92.2); Mean Corpuscular Hemoglobin 28.8 pg (25.7-32.2); Mean Corpuscular Hgb Concent. 32.9 g/dL (32.3-36.5); Mean Platelet Volume 9.8 fL (9.4-12.4); Monocyte (Absolute #) 0.93 x10^3/uL (0.30-0.82); Monocytes % 10.2 % (5.3-12.2); Neutrophil % 67.4 % (34.0-67.9); Platelet Count 227 x10^3/uL (163-337); Red Blood Count 4.89 x10^6/uL (4.63-6.08); Red Cell Distribution Width 13.8 % (11.6-14.4); White Blood Count 9.1 x10^3/uL (4.23-9.07)
[2025-02-25] MEDS: BABY ASPIRIN 81 MG CHEW PO ONE (18:03)
[2025-02-25] MEDS: Zofran 4 MG/2 ML VIAL IV ONE (18:03)
[2025-02-25] MEDS: MORPHINE SULFATE 2 MG INJ IV ONE ×2 (18:03→19:42)
[2025-02-25 18:12] LABS: ALBUMIN 4.7 g/dL (3.5-5.0); ANION GAP 20.2 MEQ/L (5-15); BILIRUBIN,TOTAL 0.7 mg/dL (0.2-1.3); Creatinine 1 1.04 mg/dL (0.66-1.25); EST GLOMERULAR FILTRATION RATE 69.5 ML/MIN; MAGNESIUM 2.2 mg/dL (1.6-2.3); Potassium 3.9 mmol/L (3.5-5.1); Total Protein 7.4 g/dL (6.3-8.2)
[2025-02-25] MEDS ORDERED: Sodium Chloride 0.9% 500 ML 500 ML IV ONE (19:41)
[2025-02-25] MEDS: Sodium Chloride 0.9% 500 ML 500 ML IV SCH (19:43)
[2025-02-25 21:09] VITALS: BP 112/63; PULSE 72; RESP 17; O2SAT 97
--- NOTE | 2025-02-26 08:36 | XRAY ---
Indication: Evaluate for aneurysm. Back and abdomen pain. Multiple contiguous axial images obtained through the chest using 100 cc Isovue 370 contrast. Comparison: October 21, 2016 Heart remains borderline enlarged with new left dual-lead pacemaker. Aorta is normal in course and caliber without aneurysm/dissection. Stable small mediastinal and bilateral hilar calcified nodes. No pathologic mediastinal/hilar lymphadenopathy. Lungs again hyperinflated with mild bibasilar subsegmental atelectasis/scarring and tiny lingula calcified granulomas. No new pulmonary mass/nodule, infiltrate, or effusion. Bony thorax intact again with osteopenia and minimal/mild degenerative changes throughout spine. CT abdomen/pelvis reported separately. Impression: 1. Again chronic findings including hyperinflated lungs, borderline cardiomegaly, bibasilar atelectasis/scarring, chronic bony findings, and old granulomatous disease. 2. Remaining CT abdomen/pelvis with contrast exam is negative.
--- NOTE | 2025-02-26 08:38 | XRAY ---
Indication: Evaluate for aneurysm. Back and abdomen pain. Multiple contiguous axial images obtained through the abdomen and pelvis using 100 cc Isovue 370 contrast. Comparison: None CT chest reported separately. Stomach distended with food. Noncontrasted stomach and bowel loops appear nonobstructed. There is mild scattered colonic fecal debris. Previous cholecystomy. Prominent biliary tree with common bile duct up to 11 mm. Both kidneys enhance and excrete with a few bilateral renal cysts, largest right lower pole measuring 4.2 cm. 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 Posterior urinary bladder demonstrates 2 cm left bladder diverticulum. No free fluid/air. Remaining liver, pancreas, spleen, adrenal glands, kidneys, ureters, and bladder are unremarkable. Mild scattered aortoiliac calcifications including left main renal artery. No AAA/dissection. No pathologic retroperitoneal lymphadenopathy. Osseous structures intact with osteopenia. No ventral or inguinal hernias. Impression: 1. Prominent biliary tree in this cholecystectomy patient. ERCP/MRCP may yield further information if clinically warranted. 2. Chronic findings including bilateral renal cysts, urinary bladder diverticulum, arteriosclerotic disease, and osteopenia. 3. Remaining CT abdomen/pelvis with contrast exam is negative.
== END 2025-02-25 21:30 | disposition left against medical advice (07) ==
LOC: ED 17:42
DX: R07.9 Chest pain, unspecified (principal); M54.9 Dorsalgia, unspecified; R68.84 Jaw pain; I10 Essential (primary) hypertension; Z79.01 Long term (current) use of anticoagulants; Z79.899 Other long term (current) drug therapy
CPT/HCPCS: 36415; 71260; 74177; 80053; 83735; 84439; 84443; 84484; 85025; 93005; 94760; 96361; 96374; 96375; 96376; 99284; 99285; J2270; J2405; A9270-GY

== ENCOUNTER 2025-09-17 05:53 | Day surgery (SDC) | payer MEDICARE ==
[2025-09-17] MEDS: Lactated Ringers 1,000 ML IV SCH (06:17)
[2025-09-17 07:00] VITALS: RESP 16
[2025-09-17] MEDS ORDERED: Xylocaine-Mpf 2% 5 Ml Vial ONE (07:13)
[2025-09-17] MEDS ORDERED: propofoL IV ONE (07:13)
[2025-09-17 08:10] VITALS: BP 158/95; PULSE 70; TEMP 98; O2SAT 97
--- NOTE | 2025-09-18 08:46 | OP ---
SURGERY DATE/TIME: 09/17/2025 [id number] PREOPERATIVE DIAGNOSIS: Melena stools and abdominal pain. POSTOPERATIVE DIAGNOSIS: Moderate to severe gastritis and retained gastric food products. PROCEDURE: Esophagogastroduodenoscopy. SURGEON: Rohan Lopez MD ANESTHESIA: Medications given by the Anesthesia department. HISTORY: The patient is an 89-year-old white male patient who was in the emergency room due to some abdominal pain. He was having some melanotic stools at that time. The patient was felt to need to have endoscopic evaluation. The patient's history is also complicated by a previous partial gastrectomy and vagotomy performed many many years ago. The patient has been on Xarelto due to being in atrial fibrillation, which we have asked him to hold prior to the procedure. The patient was described the risks of the procedure including risk of perforation, phlebitis, untoward reaction to medication, bleeding, and missed lesions. The patient verbalized his understanding and desired to have procedure performed. DESCRIPTION OF PROCEDURE AND FINDINGS: Patient was given medication by the Anesthesia department. He had continuous pulse oximetry, ECG monitoring, and intermittent blood pressure monitoring during the examination. He was placed in the left lateral decubitus position. A bite block was placed. The flexible Olympus gastroscope was used to intubate the oropharynx. A view of the oropharynx was obtained and was normal. The scope was easily introduced into the esophagus, which appeared to be normal essentially throughout its length. The stomach was entered, where approximately one-half of the stomach was filled full of still retained gastric food products. We distended the stomach to see as well as we good but the food stuffs were too thick to suction through the scope. The stomach was re-insufflated and passed along to lower portion of the stomach where we did see some oozing of blood but there was no significant bleeding otherwise noted, and we tried aggressively to view under the area as much as possible but the food stuffs prevented a complete viewing of that area. The duodenal area appeared to be essentially normal. The scope was withdrawn from the patient who tolerated the procedure well and was sent back to outpatient recovery in good condition.
== END 2025-09-17 08:32 | disposition home or self-care (01) ==
LOC: SDC 05:53
PROVIDERS: ATTEND Family Medicine
DX: K29.70 Gastritis, unspecified, without bleeding (principal); K92.1 Melena; R10.9 Unspecified abdominal pain; K31.89 Other diseases of stomach and duodenum

== ENCOUNTER 2025-09-30 06:06 | Day surgery (SDC) | payer MEDICARE ==
[2025-09-30] MEDS: Lactated Ringers 1,000 ML IV SCH (06:26)
[2025-09-30] MEDS ORDERED: propofoL IV ONE (07:53)
[2025-09-30 08:45] VITALS: RESP 16
[2025-09-30 08:51] VITALS: BP 124/76; PULSE 71; TEMP 97.2; O2SAT 100
--- NOTE | 2025-09-30 14:00 | OP ---
SURGERY DATE/TIME: 09/30/2025 [id number] PREOPERATIVE DIAGNOSIS: Upper gastrointestinal bleeding. POSTOPERATIVE DIAGNOSIS: Gastritis and phytobezoar. PROCEDURE: Esophagogastroduodenoscopy. SURGEON: Rohan Lopez MD ANESTHESIA: Medication given by the anesthesia department. INDICATIONS: The patient is an 89-year-old white male patient who has had bleeding from the upper portion of stomach over the past few weeks. This has stopped by this time. He had an EGD approximately 2 weeks ago but is phytobezoar was present and kept us from being able to see the parts of the stomach that we needed to see. The patient had the procedure stopped at that point. He at this point has been off foods for 3 days, taking liquids only in order to reinvestigate the area. The patient was apprised risks of procedure including risk of perforation, phlebitis, untoward reaction to medication, bleeding, and missed lesions. The patient verbalized his understanding and desired to have procedure performed. DESCRIPTION OF PROCEDURE AND FINDINGS: The patient was given medication by the anesthesia department. He had continuous pulse oximetry, ECG monitoring, and intermittent blood pressure monitoring during the examination. He was placed in left lateral decubitus position. A bite block was placed. The flexible Olympus gastroscope was used to intubate the oropharynx. A view of the larynx was obtained and was normal. The scope was easily introduced into the esophagus which appeared to be essentially normal throughout its length. The stomach was entered where the phytobezoar was still present; however, we were able to see around it better in the lower part of the stomach to see there was no active bleeding but there was some gastritis. No significant mucosal lesions otherwise being noted, the scope was removed from the patient who was sent back to recovery room. The patient tolerated the procedure well.
== END 2025-09-30 09:00 | disposition home or self-care (01) ==
LOC: SDC 06:06
PROVIDERS: ATTEND Family Medicine
DX: K29.70 Gastritis, unspecified, without bleeding (principal); T18.2XXA Foreign body in stomach, initial encounter